=== PATIENT | female | born 1955 | race Caucasian/White ===

== ENCOUNTER 2018-02-12 06:24 | Inpatient (IN) | payer BC, OTHER ==
[2018-02-09 09:24] LABS: HEMATOCRIT 40.2 % (37.0-47.0); HEMOGLOBIN 13.5 gm/dL (12.0-15.0); MCH 32.2 pg (26.0-34.0); MCHC 33.6 g/dL (28.0-37.0); MCV 95.9 fL (80.0-100.0); RBC 4.19 mil/uL (4.20-5.00); RDW 12.7 % (10.5-14.5); URINE BILIRUBIN NEGATIVE (Negative); URINE BLOOD NEGATIVE (Negative); URINE CLARITY CLEAR; URINE COLOR YELLOW; URINE GLUCOSE-RANDOM* NEGATIVE (Negative); URINE KETONES NEGATIVE (Negative); URINE LEUKOCYTES-REFLEX NEGATIVE (Negative); URINE NITRITE-REFLEX NEGATIVE (Negative); URINE PROTEIN (DIPSTICK) NEGATIVE (Negative); URINE UROBILINOGEN 0.2 E.U./dl (0.2-1.0); WBC 5.7 thou/uL (4.0-11.0)
[2018-02-09 09:32] LABS: ALBUMIN 3.6 g/dL (3.4-5.0); CREATININE 0.6 mg/dL (0.6-1.0); POTASSIUM 4.9 mmol/L (3.5-5.1)
[2018-02-09 09:38] LABS: PROTIME 10.1 Seconds (9.3-11.4)
[~2018-02-12] VITALS: Ht 175.3 cm; Wt 81.6 kg
[2018-02-12] VITALS (7 sets, daily range): BP systolic 121–150; BP diastolic 64–86
--- NOTE | ~2018-02-12 | O ---
[facility] [place] [address] OPERATIVE REPORT Name: SHARIFA CHARLES Room #: 428-P [facility] M.R.#: [id number] Admission: 02/12/18 Attend Phys: Jb Wilhelm MD Discharge: Date of : 57 Report #: [id number] THIS REPORT FOR: //name// CC: Isiah Wilhelm DATE OF SERVICE: 02/12/2018 PREOPERATIVE DIAGNOSIS: Left knee valgus osteoarthritis. POSTOPERATIVE DIAGNOSIS: Left knee valgus osteoarthritis. PROCEDURE: Left total knee arthroplasty using Navio robotic assistant elementary teacher. SURGEON: Jb Wilhelm MD. AUTOMOBILE AND PROPERTY UNDERWRITER: Jennifer Vo PA-C. INDICATIONS FOR AUTOMOBILE AND PROPERTY UNDERWRITER: Throughout the case, extensive retraction and manipulation of the knee was required. This was afforded to me by my assistant elementary teacher. ANESTHESIA: LMA with an adductor canal block. IMPLANTS: [employer] size 5 Journey II BCS Oxinium femur, a size 4 tibia, size 11 polyethylene and a size 32 patella. TOURNIQUET TIME: 69 minutes. ESTIMATED BLOOD LOSS: 25 mL COMPLICATIONS: None. SPECIMENS: None. CONDITION UPON LEAVING THE OPERATING ROOM: Stable. INDICATION FOR PROCEDURE: The patient is a 62-year-old female with left knee valgus osteoarthritis. She had failed conservative measures for this and after discussion with her, she elected for left total knee arthroplasty. DESCRIPTION OF PROCEDURE: Risks, benefits, alternatives and complications were discussed in detail with the patient including, but not limited to, risk of anesthesia, risk of damage to nerves, arteries, blood vessels, risk for infection, bleeding, risk for continued knee pain and need for reoperation. Informed consent was obtained from the patient. The left knee was appropriately marked in the preoperative holding area. IV vancomycin was given for [facility] [address] [place] [address] OPERATIVE REPORT Name: SHARIFA CHARLES SAMSON Room #: 428-P [facility]..#: [id number] Admission: 02/12/18 Attend Phys: Jb Wilhelm MD Discharge: Date of : 57 Report #: [id number] preoperative antibiotics. She was brought to the operating room and placed in the supine position on the operating room table. LMA anesthesia was induced without complication. Tourniquet was placed on the left thigh. Left lower extremity was prepped and draped in normal sterile fashion. Timeout was performed properly identifying the patient and procedure as well as the instrumentation and implants. All in the operating room were in agreement. Left lower extremity was exsanguinated, tourniquet was inflated. Tourniquet time was 69 minutes. Standard midline approach to the knee was made with 10 blade through the skin. Dissection was taken down sharply to the fascia and deep flaps were developed medially and laterally. Fresh 10 blade was used to make a medial parapatellar arthrotomy and the knee was inspected and there was severe lateral compartment osteoarthritis with moderate medial and patellofemoral involvement. It was decided to proceed with total knee arthroplasty. ACL and PCL were removed sharply. Reference pins were then placed in the femur and the tibia for the Navio system. The knee was then digitally mapped using the Navio robotic navigation system. An intraoperative plan was made. We sized a size 5 femur, size 4 tibia with a size 11 polyethylene. After acceptance of the plan, the distal femoral cut was then made with the Navio bur and the size five 5-in-1 cutting block was placed and anterior, posterior and chamfer cuts were made on the femur. Attention was then turned to the tibia. The remainder of the menisci removed with Bovie cautery. Tibial resection guide was then pinned in place using the Navio navigation for placement. Tibial resection was made. Flexion and extension gaps were then checked and found to be equal with a size 11 spacer block. The tibia was sized, found to be a size 4. Size 4 tibial trial was placed, pinned and punched. A size 5 femoral trial was placed and the box cut was made. This was then trialed with a size 11 polyethylene and found to have good balance in flexion and extension throughout range of motion both manually as well as digitally. 9 mm was taken off the posterior surface of the patella and a size 32 patellar trial button was placed. Knee was taken through range of motion, found to be stable, found to have good patellar tracking. After this, trial components were removed. Bone ends were thoroughly irrigated with normal saline. A final size 4 tibia, size 5 Journey II BCS Oxinium femur and a size 32 patella were cemented in place using standard cementation techniques. While the cement cured, a periarticular injection consisting of morphine, ropivacaine, epinephrine and Toradol was placed around the knee joint capsule. After the cement cured, the tourniquet was deflated. Hemostasis was obtained with Bovie cautery. A final size 11 polyethylene was placed. A gram of vancomycin was placed deep in the joint. Fascia was closed with 0 Vicryl, skin was closed with 2-0 Vicryl, 3-0 Monocryl. Dermabond and a SEFERINO dressing was applied. The patient tolerated this procedure well and went to recovery room under care of anesthesia postoperatively. By: 1815 1842 Jb Wilhelm MD /nt
--- NOTE | ~2018-02-12 | EKG ---
[place] [address] [employer] [facility] [place] [address] ELECTROCARDIOGRAM REPORT Name: SHARIFA CHARLES Room #: PRE [facility] M.R.#: [id number] Admission: Attend Phys: Jb Wilhelm MD Discharge: Date of : 57 Report #: [id number] THIS REPORT FOR: //name// [facility] Test Date: 2018-02-09 Test Time: 09:20:47 Pat Name: SHARIFA CHARLES Department: Room: Gender: F Technical Assistance Consultant: Gale KLINE : 1955 Requested By: Jb Wilhelm Order Number: [id number] MD: Manuel Chiu Measurements Intervals [place] Rate: 76 P: 51 VA: 184 QRS: -58 QRSD: 103 T: 21 QT: 386 QTc: 435 Interpretive Statements Sinus rhythm Left axis deviation Nonspecific ST-T wave changes Baseline wander No previous ECG available for comparison Electronically Signed On 02-09-2018 10:55:23 [facility] [employer] by Manuel Chiu [email or web address] <ELECTRONICALLY SIGNED> By: Manuel Chiu MD 02/09/18 1055 0920 9 Manuel Chiu MD /DANIEL
[~2018-02-12 06:24] MED LIST: ADDERALL XR 3030 MG PO; CYMBALTA60 MG PO; EVOXAC30 MG PO; KRILL OIL 1,001 EAC1 PO; PRILOSEC OTC20 MG PO; UNICOMPLEX M TA1 TA1 PO; XANAX 0.5 MG0.5 MG PO
[2018-02-13 04:45] VITALS: BP 155/80
[2018-02-13 06:30] LABS: HEMOGLOBIN 9.4 gm/dL (12.0-15.0); MCH 32.5 pg (26.0-34.0); MCHC 33.5 g/dL (28.0-37.0); MCV 97.2 fL (80.0-100.0); RBC 2.88 mil/uL (4.20-5.00); RDW 12.8 % (10.5-14.5); WBC 14.7 thou/uL (4.0-11.0)
[2018-02-13 08:00] VITALS: BP 157/105
[2018-02-13 15:30] VITALS: BP 148/81
[2018-02-13 19:50] VITALS: BP 178/98
[2018-02-14 04:00] VITALS: BP 151/58
[2018-02-14 06:46] LABS: HEMOGLOBIN 9.3 gm/dL (12.0-15.0); MCH 33.1 pg (26.0-34.0); MCHC 34.4 g/dL (28.0-37.0); MCV 96.2 fL (80.0-100.0); RBC 2.81 mil/uL (4.20-5.00); RDW 12.8 % (10.5-14.5); WBC 8.5 thou/uL (4.0-11.0)
[2018-02-14 08:23] VITALS: BP 129/64
[2018-02-14] MEDS ORDERED: TRI-BUFFERED A325 M1 PO (12:02)
[2018-02-14 12:09] VITALS: BP 129/64
== END 2018-02-14 15:07 | disposition home or self-care (01) | DRG 470 ==
LOC: TBA 06:24 → OR 06:24 → TBA 06:25 → OR 08:28 → 4E 14:43 → OR 15:00 → 4E 02-13 09:00 → OR 02-13 09:00 → 4E 02-14 15:07
PROVIDERS: Orthopaedic Surgery
PROC: XR2H021 Monitoring of Left Knee Joint using Intraoperative Knee Replacement Sensor, Open Approach, New Technology Group 1 (ICD-10-PCS; principal; 2018-02-12)
PROC: 0SRD069 Replacement of Left Knee Joint with Oxidized Zirconium on Polyethylene Synthetic Substitute, Cemented, Open Approach (ICD-10-PCS; principal; 2018-02-12)
DX: M17.12 Unilateral primary osteoarthritis, left knee (principal); F41.9 Anxiety disorder, unspecified; H40.9 Unspecified glaucoma; Z79.82 Long term (current) use of aspirin; Z79.899 Other long term (current) drug therapy; Z88.2 Allergy status to sulfonamides; Z28.21 Immunization not carried out because of patient refusal; Z90.49 Acquired absence of other specified parts of digestive tract; Z98.49 Cataract extraction status, unspecified eye; Z90.710 Acquired absence of both cervix and uterus; Z23 Encounter for immunization
CPT/HCPCS: 10783; 50010; 50101; 50415; 50954; 51130; 51225; 51771; 53000; 53078; 54118; 55372; 56527; 56528; 57095; 57103; 57109; 57110; 57113; 57127; 57180; 62110; 62900; 64042; 70005

== ENCOUNTER 2018-03-15 12:23 | Emergency (ER) | payer BC, OTHER ==
[~2018-03-15] VITALS: Ht 170.2 cm; Wt 77.1 kg
[~2018-03-15 12:23] MED LIST changes: +TRI-BUFFERED A325 M1 PO
[2018-03-15 13:34] LABS: BASOPHILS 0.9 % (0.0-2.0); HEMATOCRIT 37.2 % (37.0-47.0); HEMOGLOBIN 12.5 gm/dL (12.0-15.0); LYMPHOCYTES 44.2 % (24.0-44.0); MCH 31.2 pg (26.0-34.0); MCHC 33.5 g/dL (28.0-37.0); MCV 93.1 fL (80.0-100.0); MONOCYTES 10.6 % (1.0-8.0); PLATELET COUNT 437 thou/uL (150-400); POLYS 43.3 % (36.0-66.0); RDW 14.3 % (10.5-14.5); WBC 6.9 thou/uL (4.0-11.0)
[2018-03-15 13:43] LABS: CALCIUM 9.3 mg/dL (8.5-10.1); CREATININE 0.6 mg/dL (0.6-1.0); POTASSIUM 4.3 mmol/L (3.5-5.1)
[2018-03-15 15:44] VITALS: BP 123/79
== END 2018-03-15 15:30 | disposition home or self-care (01) ==
LOC: ER 12:23
PROVIDERS: Physician Assistant
DX: G89.18 Other acute postprocedural pain (principal); M25.562 Pain in left knee; K21.9 Gastro-esophageal reflux disease without esophagitis; Z87.01 Personal history of pneumonia (recurrent); F41.9 Anxiety disorder, unspecified; Z90.49 Acquired absence of other specified parts of digestive tract; Z90.710 Acquired absence of both cervix and uterus; Z96.652 Presence of left artificial knee joint; Z88.2 Allergy status to sulfonamides